=== PATIENT | male | born 1980 | race Caucasian/White ===

== ENCOUNTER 2016-03-24 11:15 | Observation (INO) | payer OTHER ==
[~2016-03-24] VITALS: Ht 177.8 cm; Wt 80.7 kg
[2016-03-24] VITALS (7 sets, daily range): BP systolic 111–127; BP diastolic 74–91
--- NOTE | 2016-03-24 12:38 | DIAGNOSTIC IMAGING REPORT ---
PROCEDURE: XR HAND 3 OR 4 VIEWS - RIGHT INDICATION: TRAUMA/INJURY TECHNIQUE: Four views. COMPARISON: None. FINDINGS: A side plate and eight screws are crossing the refused radial carpal bones. The plate extends from the distal radius to the midportion of the third metacarpal. There are no fractures. A 2 cm linear foreign body is just medial to the third metacarpal. IMPRESSION: 1. Status post wrist fusion. A 2 cm foreign body is medial to the third metacarpal. 2. Results discussed with the Dr. Infante at 12:30 p.m.
--- NOTE | 2016-03-24 13:44 | ED NURSING NOTES ---
Clinical Report - Nurses [facility] [address] [place] [address] 03/24/2016 11:17 Patient: POLYL KRISHNAMURTHY TRIAGE Triage time 11:30 Mar 24 2016. Acuity: LEVEL 2. Chief Complaint: RIGHT UPPER EXTREMITY PAIN, SWELLING, NUMBNESS and TINGLING. Alert. No acute distress. FAYE COMA SCORE: [place] Coma Scale: 15- eyes open spontaneously (4); best verbal response- oriented x 4 (5); best motor response- obeys commands (6). --11:36 Meenakshi Momin R.N. 11:35 03/24/16. BP: 130/88. HR: 88. RR: 18. O2 saturation: 100%. Temp: 98.2 F. Pain level now 11/22. --11:36 Meenakshi Momin R.N. Weight: 78.4 kg stated. Height/Length: 70 inches Per Patient. BMI: 24.8. --11:26 Meenakshi Momin R.N. Medications [place] Burkett Wort Oral 3 tabs, daily (takes for Bipolar). --11:34 Meenakshi Momin R.N. Allergies Rocephin.(Anaphylaxis) --11:34 Meenakshi Momin R.N. Paxil. ("can't breath") --11:35 Meenakshi Momin R.N. History Arrived by private vehicle, and accompanied by (by self). Primary physician ([facility]). ( Obvious deformity to Right Hand. Puncture Wound. Bleeding controlled. Tripped over his cat he states. Pt states he has a metal plate in his hand. Last Meal was last night.). Injury occurred. This occurred just prior to arrival. Occurred at home. Treatment [employer]CH[employer]: None. PAST MEDICAL HX: Tetanus status: up-to-date. SOCIAL HX: Heavy tobacco smoker (cigarette)- 1 pack per day. Alcohol use. ("socially"). History of drug use: marijuana. NUTRITIONAL RISK ASSESSMENT: The nutritional risk assessment revealed no deficiencies. FUNCTIONAL ASSESSMENT: Functional assessment: no impairments noted. LEARNING NEEDS ASSESSMENT: The learning needs assessment revealed no barriers. SKIN INTEGRITY ASSESSMENT: Skin integrity risk assessment completed. No skin integrity risk identified. --11:36 Meenakshi Momin R.N. PROBLEMS: Bipolar Disorder. --11:35 Meenakshi Momin R.N. Interventions ID band on patient. To room. --11:36 Meenakshi Momin R.N. PHYSICAL ASSESSMENT Ambulatory to room. GENERAL / NEURO / PSYCH: Appears in pain. EXTREMITIES: Limited ROM present. Upper extremity edema. Neuro-vascular status intact to the extremity. ( obvious deformity to top of hand, possible bone or edema). SKIN: Skin breakdown noted. --11:39 Meenakshi Momin R.N. NURSING PROGRESS NOTES ( Called pt in waiting area, he is outside smoking.). --11:27 Meenakshi Momin R.N. Applied bulky and pressure dressing. --11:39 Meenakshi Momin R.N. Patient walked to radiology with tech. --11:44 Meenakshi Momin R.N. ( brought to room 7). --12:02 Meenakshi Momin R.N. 12:06 03/24/16. Wound cleansed (left hand soaking in hibiclens and warm water). --12:06 Ashanti Quinn R.N. 12:33 03/24/2016 Toradol (Ketorolac Tromethamine) IM 60 mg given. Allergies verified and confirmed 5 rights. --12:33 Ashanti Quinn R.N. 13:07 03/24/16. ( Pt left ED to smoke outside.). --13:07 Ashanti Quinn R.N. 13:03/24/16. ( Pt's last tetanus immunization, he states, was 2 years ago). --13:09 Ashanti Quinn R.N. 13:33 03/24/2016 Site #1 started via IV in the left antecubital space with an 20g angiocath, with aseptic technique and good blood return; one attempt. Blood drawn: rainbow set. Labeled in the presence of the patient and sent to the lab. --13:33 Ashanti Quinn R.N. 13:33 03/24/2016 Started bag #1 1000 mL IV Fluids IV NS (Saline); at 150 mL/hr via site #1 via IV pump. Allergies verified and confirmed 5 rights. --13:33 Ashanti Quinn R.N. 13:36 03/24/2016 Started 600 mg of Cleocin (Clindamycin Phosphate) IVPB in bag #1 50 mL; at 100 mL/hr over 30 minute(s) via site #1 via IV pump. Allergies verified and confirmed 5 rights. --13:36 Ashanti Quinn R.N. 14:05 03/24/2016 Cleocin IVPB Discontinued: completed. Total amount infused: 50 mL. IV patency established. IV site checked: no pain, redness, or swelling. IV flushed thoroughly. --15:24 Ashanti Quinn R.N. 15:25 03/24/2016 IV Fluids IV NS Continued: upon admission at the rate of 150 mL/hr. 700 mL remaining bag #1. --15:25 Ashanti Quinn R.N. DISPOSITION / DISCHARGE 15:26 03/24/16. Departure time: 1522. Report was given to a nurse via a phone call. Report included patient's care, treatment, medications, reviewed medication reconcilliation, and condition (including any recent changes or anticipated changes). All questions were answered. Report was acknowledged and care was transferred. --15:26 Ashanti Quinn R.N. 15:25 03/24/16. BP: 135/98. HR: 78. RR: 18. O2 saturation: 100%. Temp: 97.6 F. Pain level now: 06/22. --15:26 Ashanit Quinn R.N. Locked/Released at 04/07/2016 6:43 by Gwendolyn Castro R.N.
--- NOTE | 2016-03-24 13:44 | ED CLINICAL REPORT ---
Clinical Report - Physicians/Mid Levels [facility] [address] [place] [address] 03/24/2016 11:17 Patient: POLLY KRISHNAMURTHY *This is a preliminary document and is subject to change Time Seen: 12:12; initial patient contact. LABS, X-RAYS, AND EKG Rt Hand X-ray: (Status post wrist fusion. A 2 cm foreign body is medial to the third metacarpal.). Views: AP, lateral and oblique. Technique: good. The X-rays were independently viewed by me, interpreted by the radiologist and discussed with the radiologist. Prior films were not available for comparison. Interpretation time: 1236. PROGRESS AND PROCEDURES Discussed case with on-call health care provider, (call returned 13:22 Dr. Vargas Albrecht. Will take to the OR.). Raymond Infante Dr.
--- NOTE | 2016-03-24 13:44 | ED ORDER SUMMARY ---
..... Patient: POLLY KRISHNAMURTHY OrderSheet [facility] VisitID: [id number] [place] [address] 35y, M Registration Date/Time: 03/24/2016 ORDER SHEET Weight: 78.4 kg (stated) Allergies: Rocephin, Paxil GENERAL ORDERS: Hand 3 or 4V Right Urgent (11:37 03/24/2016 SBalde R.N. per protocol) (Ack 11:43 TBergley) (13:16 TBergley) CBC w Diff Urgent (13:21 03/24/2016 Latosha Shaw) (Ack 13:24 TBergley) (13:32 LSullivan R.N.) BMP Urgent (13:03/24/2016 Latosha Shaw) (Ack 13:24 TBergley) (13:32 LSullivan R.N.) NPO (13:03/24/2016 Latosha Shaw) (Ack 13:24 TBergley) (13:32 LSullivan R.N.) MEDICATION ORDERS: Toradol IM 60 mg (NOW) (12:19 03/24/2016 Latosha Shaw) (12:33 LSullivan R.N.) IV FLUIDS: IV NS : initial bolus none -, then 150 mL/hr for X1 (NOW) (13:20 03/24/2016 Latosha Shaw) (13:33 VANEullivan R.N.) Cleocin IV 600 mg/50mL (NOW) (13:03/24/2016 Latosha Shaw) (13:36 LSullivan R.N.) ORDER SHEET NOTES: This document has not been locked and should not be saved in the medical record.
--- NOTE | 2016-03-24 13:44 | ED CLINICAL REPORT ---
Clinical Report - Physicians/Mid Levels [facility] [address] [place] [address] 03/24/2016 11:17 Patient: POLLY KRISHNAMURTHY *This is a preliminary document and is subject to change Time Seen: 12:12; initial patient contact. LABS, X-RAYS, AND EKG Rt Hand X-ray: (Status post wrist fusion. A 2 cm foreign body is medial to the third metacarpal.). Views: AP, lateral and oblique. Technique: good. The X-rays were independently viewed by me, interpreted by the radiologist and discussed with the radiologist. Prior films were not available for comparison. Interpretation time: 1236. PROGRESS AND PROCEDURES Discussed case with on-call health care provider, (call returned 13:22 Dr. Vargas Albrecht. Will take to the OR.). Raymond Infante Dr.
--- NOTE | 2016-03-24 13:44 | ED NURSING NOTES ---
Clinical Report - Nurses [facility] [address] [place] [address] 03/24/2016 11:17 Patient: POLLY KRISHNAMURTHY TRIAGE Triage time 11:30 Mar 24 2016. Acuity: LEVEL 2. Chief Complaint: RIGHT UPPER EXTREMITY PAIN, SWELLING, NUMBNESS and TINGLING. Alert. No acute distress. FAYE COMA SCORE: [place] Coma Scale: 15- eyes open spontaneously (4); best verbal response- oriented x 4 (5); best motor response- obeys commands (6). --11:36 Meenakshi Momin R.N. 11:35 03/24/16. BP: 130/88. HR: 88. RR: 18. O2 saturation: 100%. Temp: 98.2 F. Pain level now 11/22. --11:36 Meenakshi Momin R.N. Weight: 78.4 kg stated. Height/Length: 70 inches Per Patient. BMI: 24.8. --11:26 Meenakshi Momin R.N. Medications [place] Burkett Wort Oral 3 tabs, daily (takes for Bipolar). --11:34 Meenakshi Momin R.N. Allergies Rocephin.(Anaphylaxis) --11:34 Meenakshi Momin R.N. Paxil. ("can't breath") --11:35 Meenakshi Momin R.N. History Arrived by private vehicle, and accompanied by (by self). Primary physician ([facility]). ( Obvious deformity to Right Hand. Puncture Wound. Bleeding controlled. Tripped over his cat he states. Pt states he has a metal plate in his hand. Last Meal was last night.). Injury occurred. This occurred just prior to arrival. Occurred at home. Treatment MANAGER MEDICAL AFFAIRS: None. PAST MEDICAL HX: Tetanus status: up-to-date. SOCIAL HX: Heavy tobacco smoker (cigarette)- 1 pack per day. Alcohol use. ("socially"). History of drug use: marijuana. NUTRITIONAL RISK ASSESSMENT: The nutritional risk assessment revealed no deficiencies. FUNCTIONAL ASSESSMENT: Functional assessment: no impairments noted. LEARNING NEEDS ASSESSMENT: The learning needs assessment revealed no barriers. SKIN INTEGRITY ASSESSMENT: Skin integrity risk assessment completed. No skin integrity risk identified. --11:36 Meenakshi Momin R.N. PROBLEMS: Bipolar Disorder. --11:35 Meenakshi Momin R.N. Interventions ID band on patient. To room. --11:36 Meenakshi Momin R.N. PHYSICAL ASSESSMENT Ambulatory to room. GENERAL / NEURO / PSYCH: Appears in pain. EXTREMITIES: Limited ROM present. Upper extremity edema. Neuro-vascular status intact to the extremity. ( obvious deformity to top of hand, possible bone or edema). SKIN: Skin breakdown noted. --11:39 Meenakshi Momin R.N. NURSING PROGRESS NOTES ( Called pt in waiting area, he is outside smoking.). --11:27 Meenakshi Momin R.N. Applied bulky and pressure dressing. --11:39 Meenakshi Momin R.N. Patient walked to radiology with tech. --11:44 Meenakshi Momin R.N. ( brought to room 7). --12:02 Meenakshi Momin R.N. 12:06 03/24/16. Wound cleansed (left hand soaking in hibiclens and warm water). --12:06 Ashanti Quinn R.N. 12:33 03/24/2016 Toradol (Ketorolac Tromethamine) IM 60 mg given. Allergies verified and confirmed 5 rights. --12:33 Ashanti Quinn R.N. 13:07 03/24/16. ( Pt left ED to smoke outside.). --13:07 Ashanti Quinn R.N. 13:03/24/16. ( Pt's last tetanus immunization, he states, was 2 years ago). --13:09 Ashanti Quinn R.N. 13:33 03/24/2016 Site #1 started via IV in the left antecubital space with an 20g angiocath, with aseptic technique and good blood return; one attempt. Blood drawn: rainbow set. Labeled in the presence of the patient and sent to the lab. --13:33 Ashanti Quinn R.N. 13:33 03/24/2016 Started bag #1 1000 mL IV Fluids IV NS (Saline); at 150 mL/hr via site #1 via IV pump. Allergies verified and confirmed 5 rights. --13:33 Ashanti Quinn R.N. 13:36 03/24/2016 Started 600 mg of Cleocin (Clindamycin Phosphate) IVPB in bag #1 50 mL; at 100 mL/hr over 30 minute(s) via site #1 via IV pump. Allergies verified and confirmed 5 rights. --13:36 Ashanti Quinn R.N. 14:05 03/24/2016 Cleocin IVPB Discontinued: completed. Total amount infused: 50 mL. IV patency established. IV site checked: no pain, redness, or swelling. IV flushed thoroughly. --15:24 Ashanti Quinn R.N. 15:25 03/24/2016 IV Fluids IV NS Continued: upon admission at the rate of 150 mL/hr. 700 mL remaining bag #1. --15:25 Ashanti Quinn R.N. DISPOSITION / DISCHARGE 15:26 03/24/16. Departure time: 1522. Report was given to a nurse via a phone call. Report included patient's care, treatment, medications, reviewed medication reconcilliation, and condition (including any recent changes or anticipated changes). All questions were answered. Report was acknowledged and care was transferred. --15:26 Ashanti Quinn R.N. 15:25 03/24/16. BP: 135/98. HR: 78. RR: 18. O2 saturation: 100%. Temp: 97.6 F. Pain level now: 06/22. --15:26 Ashanti Quinn R.N. Locked/Released at 04/07/2016 6:43 by Gwendolyn Castro R.N.
--- NOTE | 2016-03-24 13:44 | ED ORDER SUMMARY ---
..... Patient: POLLY KRISHNAMURTHY OrderSheet [facility] VisitID: [id number] [place] [address] 35y, M Registration Date/Time: 03/24/2016 ORDER SHEET Weight: 78.4 kg (stated) Allergies: Rocephin, Paxil GENERAL ORDERS: Hand 3 or 4V Right Urgent (11:37 03/24/2016 SBalde R.N. per protocol) (Ack 11:43 TBergley) (13:16 TBergley) CBC w Diff Urgent (13:21 03/24/2016 Latosha Shaw) (Ack 13:24 TBergley) (13:32 LSullivan R.N.) BMP Urgent (13:03/24/2016 Latosha Shaw) (Ack 13:24 TBergley) (13:32 LSullivan R.N.) NPO (13:03/24/2016 Latosha Shaw) (Ack 13:24 TBergley) (13:32 LSullivan R.N.) MEDICATION ORDERS: Toradol IM 60 mg (NOW) (12:19 03/24/2016 Latosha Shaw) (12:33 LSullivan R.N.) IV FLUIDS: IV NS : initial bolus none -, then 150 mL/hr for X1 (NOW) (13:20 03/24/2016 Latosha Shaw) (13:33 VANEullivan R.N.) Cleocin IV 600 mg/50mL (NOW) (13:03/24/2016 Latosha Shaw) (13:36 LSullivan R.N.) ORDER SHEET NOTES: This document has not been locked and should not be saved in the medical record.
--- NOTE | 2016-03-24 18:48 | Postoperative Progress Note ---
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 Postoperative Diagnosis: Same with retained plate and screws. 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 Procedure: Removal of FB and plate and screws, irrigation right wrist and hand Complications? No Condition: Stable EBL: 25cc Blood Administered: 0 Specimen(s) removed? Yes Specimen removed/disposition: Plate and screws, FB right hand Grafts or Implants? No . (See nursing notes for details of grafts/implants)
[2016-03-24] MEDS ORDERED: PERCOCET1 TA1 PO (18:54)
[2016-03-24] MEDS ORDERED: BACTRIM DS1 TAB PO (18:55)
--- NOTE | 2016-03-24 18:57 | Provider's Discharge Care Plan ---
Problem, Goal, Plan Problem List 1. Laceration of right hand with foreign body
--- NOTE | 2016-03-24 18:57 | Provider's Discharge Care Plan ---
Problem, Goal, Plan Problem List 1. Laceration of right hand with foreign body
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
--- NOTE | 2016-03-24 21:10 | OPERATIVE REPORT ---
DATE OF SURGERY: 03/24/2016 SURGEON: Isreal Kaye MD PREOPERATIVE DIAGNOSIS: 1. 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 Incision, drainage, removal of foreign body or calcification, if necessary. 2. Removal of plate and screws as possible The operation performed was: 1. Incision, irrigation, removal of foreign body from the right hand 2. Removal of plate and screws from the right hand 3. Obtaining a culture and irrigation of the right wrist and hand wound SURGICAL TECHNIQUE: The patient was taken to the operating room. He was given a general anesthetic and a tourniquet applied on the right arm. The arm was prepped and draped in the usual sterile fashion. He had a basically longitudinal, about 1 cm to 1.5 cm , laceration over the dorsum of the hand just radial to where his previous dorsal fusion incision had been, and I extended that distally going ulnarly so I would not leave too thin of a flap between that and the previous incision. I did not extend the previous incision to the end of the incision line, but used the lacerations and again went to the ulnar aspect to open it more longitudinally, but not leave a thin flap of tissue between that incision where he had had his previous incision. We then proximally went radially with dissection and up along the previous incision line to the dorsum of the wrist and hand. There was extensive scarring that was present. The skin distally was scarred right down to the plate and was sharply dissected free. The extensor tendons were preserved during the course of the dissection including the long extensors to the ulnar four digits, extensor pollicis longus more to the radial side, and took great care to free them from the scar tissue adhesions and to retract them out of the way. We were able to with the universal screw extractor set remove the screws, starting with the distal screws and working proximally until we got to the most proximal screw and, unfortunately, all the screws were just really tight in the bone. Even though they were tight, there was still some movement, however, and I could wiggle them back and forth at the carpometacarpal joints of the second and third digits. While the screws were tight in the bone, they were not necessarily tight to the plate, and so there was some movement there and he clearly had a nonunion at that level. The remainder of the fusion appeared to be solid; but anyways, we got to the proximal screw. We stripped out the screw head. It was so tight, that I just could not turn it out. We ended up drilling it out, which was with some difficulty as the screws were made out of titanium, which is very hard, and the only drills we have are steel, which is not as hard. So we went through several drills just drilling out the screw head and irrigating thoroughly as we went to try and prevent overheating. We were finally able to drill out the screw head, remove the plate, and then core out the remainder of the screw using the screw extractor set. Once we cored out the dorsal cortex and could get at the screw and get the screw extractor onto it, we were able to remove the screw without having to core through the volar aspect. With this, all the screws and plate were out. We went down and dissected along the ulnar aspect of the third metacarpal, and there was a piece of broken glass that was present there. This clearly was the foreign body that we are seeing on our x-ray. 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 There was some abnormal motion that was there as well and he is using that basically as a false wrist joint. He could flex and extend that a little bit. Even before the surgery, it seemed like he had more motion there than would be expected and, sure enough, it was true. It looked like on his preoperative x-rays too that those joints had never really fused solidly. While he had the plate and screws in place and the screws were really tight in the bone, they were not tight to the plate, and so there was some movement that was present. At any rate, once we got to this point, we irrigated thoroughly and just closed loosely with interrupted simple 3-0 nylon sutures after first deflating the tourniquet and coagulating the superficial bleeders that were present. I did leave the original laceration site open. We dressed him with Xeroform, with ABD pads, wrapped it with a sterile Webril loosely applied, and then a dorsal splint was applied from the level of the metacarpal heads up to the proximal radial shaft and secured is in place loosely placed in. Sided set. He is awakened and taken, and secured this in place with a loosely applied Randall bandage. Once that had set up, he was awakened and he was taken to the recovery room in stable condition. Estimated blood loss was probably 25, might be as much as 50 mL. Complications were none. Specimen sent to the lab were a culture that was taken from the wound prior to the irrigation.
[2016-03-25 02:29] VITALS: BP 114/79
[2016-03-25 07:07] VITALS: BP 119/83
--- NOTE | 2016-03-25 07:47 | Progress Note ---
Subjective General No c/o mild pain. Wants to go home. VSS Afebrile NMV intact. Mild edema. Bandage dry and clean. DC home
--- NOTE | 2016-03-25 07:47 | Progress Note ---
Subjective General No c/o mild pain. Wants to go home. VSS Afebrile NMV intact. Mild edema. Bandage dry and clean. DC home
--- NOTE | 2016-04-07 06:43 | ED DISCHARGE INSTRUCTIONS ---
Patient: POLLY KRISHNAMURTHY General Instructions [facility] VisitID: [id number] [address] [place] [address] 35y, M Registration Date/Time: 03/24/2016 Retained deep soft tissue foreign body to the right hand. Puncture wound present. (Electronically signed by Raymond Infante Dr. 03/24/2016 22:23)
--- NOTE | 2016-04-07 06:43 | ED MED RECONCILIATION SUMMARY ---
Patient: POLLY KRISHNAMURTHY Medication Reconciliation Report [facility] VisitID: [id number] [place] [address] 35y, M Registration Date/Time: 03/24/2016 Weight: 78.4 kg Height/Length: 70 in. BMI: 24.8 ALLERGIES: Paxil, Rocephin The patient's Home Medications are listed below: THE FOLLOWING MEDICATIONS NEED TO BE RECONCILED: [place] Burk[place] Wort Oral 3 tabs, daily, takes for Bipolar The source(s) of the original Home Medication information: Not obtained. The following Medications were given to the patient in the Emergency Department: Toradol [IM] IM 60 mg, administered: 03/24/2016 12:33:00 PM IV NS IV Fluids bolus 0, then 150 mL/hr, administered: 03/24/2016 1:33:00 PM Cleocin [IVPB] IVPB bolus 0, then 600 mg 100 mL/hr, administered: 03/24/2016 1:36:00 PM The following Medications were prescribed to the patient: None.
--- NOTE | 2016-04-07 06:43 | ED MED RECONCILIATION SUMMARY ---
Patient: POLLY KRISHNAMURTHY Medication Reconciliation Report [facility] VisitID: [id number] [place] [address] 35y, M Registration Date/Time: 03/24/2016 Weight: 78.4 kg Height/Length: 70 in. BMI: 24.8 ALLERGIES: Paxil, Rocephin The patient's Home Medications are listed below: THE FOLLOWING MEDICATIONS NEED TO BE RECONCILED: St Burkett Wort Oral 3 tabs, daily, takes for Bipolar The source(s) of the original Home Medication information: Not obtained. The following Medications were given to the patient in the Emergency Department: Toradol [IM] IM 60 mg, administered: 03/24/2016 12:33:00 PM IV NS IV Fluids bolus 0, then 150 mL/hr, administered: 03/24/2016 1:33:00 PM Cleocin [IVPB] IVPB bolus 0, then 600 mg 100 mL/hr, administered: 03/24/2016 1:36:00 PM The following Medications were prescribed to the patient: None.
--- NOTE | 2016-04-07 06:43 | ED MAR SUMMARY ---
..... Medication Administration Record [facility] [address] [place] [address] Patient: POLLY KRISHNAMURTHY Visit ID: [id number] 35y, M Weight: 78.4 kg Height/Length: 70 in BMI: 24.8 ALLERGIES: Paxil, Rocephin Given 12:33 03/24/2016 Ashanti Quinn R.N. Medication Administered: TORADOL [IM] (KETOROLAC TROMETHAMINE), Dose: 60 mg IM. Medication Ordered: Toradol IM 60 mg (NOW). Start 13:33 03/24/2016 Ashanti Quinn R.N., Continued Upon Admission 15:25 03/24/2016 Ashanti Quinn R.N. Medication Administered: IV NS (SALINE), Dose: IV Fluids, Rate: 150 mL/hr, Dispensed: 1000 mL bag, Site: #1 left AC. Medication Ordered: IV NS : initial bolus none -, then 150 mL/hr for X1 (NOW). Start 13:36 03/24/2016 Ashanti Quinn RCece, Stop 14:05 03/24/2016 Ashanti Quinn R.N. Medication Administered: CLEOCIN [IVPB] (CLINDAMYCIN PHOSPHATE), Dose: 600 mg IVPB over 30 minute(s), Rate: 100 mL/hr, Dispensed: 50 mL bag, Site: #1 left AC. Medication Ordered: Cleocin IV 600 mg/50mL (NOW).
--- NOTE | 2016-04-07 06:43 | ED MAR SUMMARY ---
..... Medication Administration Record [facility] [address] [place] [address] Patient: POLLY KRISHNAMURTHY Visit ID: [id number] 35y, M Weight: 78.4 kg Height/Length: 70 in BMI: 24.8 ALLERGIES: Paxil, Rocephin Given 12:33 03/24/2016 Ashanti Quinn R.N. Medication Administered: TORADOL [IM] (KETOROLAC TROMETHAMINE), Dose: 60 mg IM. Medication Ordered: Toradol IM 60 mg (NOW). Start 13:33 03/24/2016 Ashanti Quinn R.N., Continued Upon Admission 15:25 03/24/2016 Ashanti Quinn R.N. Medication Administered: IV NS (SALINE), Dose: IV Fluids, Rate: 150 mL/hr, Dispensed: 1000 mL bag, Site: #1 left AC. Medication Ordered: IV NS : initial bolus none -, then 150 mL/hr for X1 (NOW). Start 13:36 03/24/2016 Ashanti Quinn RCece, Stop 14:05 03/24/2016 Ashanti Quinn R.N. Medication Administered: CLEOCIN [IVPB] (CLINDAMYCIN PHOSPHATE), Dose: 600 mg IVPB over 30 minute(s), Rate: 100 mL/hr, Dispensed: 50 mL bag, Site: #1 left AC. Medication Ordered: Cleocin IV 600 mg/50mL (NOW).
--- NOTE | 2016-04-07 06:43 | ED DISCHARGE INSTRUCTIONS ---
Patient: POLLY KRISHNAMURTHY General Instructions [facility] VisitID: [id number] [address] [place] [address] 35y, M Registration Date/Time: 03/24/2016 Retained deep soft tissue foreign body to the right hand. Puncture wound present. (Electronically signed by Raymond Infante Dr. 03/24/2016 22:23)
== END 2016-03-25 11:00 | disposition home or self-care (01) ==
LOC: ED SRH 11:15 → TRANS SRH 13:38 → ACUTE2 SRH 15:50
PROVIDERS: Orthopaedic Surgery; ADMIT Family Medicine
PROC: 0RPQ04Z Removal of Internal Fixation Device from Right Carpal Joint, Open Approach (ICD-10-PCS; principal; 2016-03-24 16:00)
PROC: 0JCJ0ZZ Extirpation of Matter from Right Hand Subcutaneous Tissue and Fascia, Open Approach (ICD-10-PCS; principal; 2016-03-24 16:00)
DX: S61.421A Laceration with foreign body of right hand, initial encounter (principal); W25.XXXA Contact with sharp glass, initial encounter; W45.8XXA Other foreign body or object entering through skin, initial encounter; W22.8XXA Striking against or struck by other objects, initial encounter; Y99.8 Other external cause status; M96.0 Pseudarthrosis after fusion or arthrodesis; Y83.8 Other surgical procedures as the cause of abnormal reaction of the patient, or of later complication, without mention of misadventure at the time of the procedure; J45.909 Unspecified asthma, uncomplicated; F17.210 Nicotine dependence, cigarettes, uncomplicated